=== PATIENT | male | born 1995 | race Hispanic/Latino ===

== ENCOUNTER 2024-02-03 20:41 | Emergency (ER) | payer OTHER, SELFPAY ==
[2024-02-03] MEDS ORDERED: KETOROLAC 30 MG/ML INJ ONE (21:49)
[2024-02-03] MEDS ORDERED: NA CHLORIDE 0.9% 1,000 ML ONE (21:50)
[2024-02-03 21:57] LABS: Absolute Eosinophils 0.1 K/uL (0-0.5); Absolute Lymphocytes (CBC) 1.6 K/uL (0.7-4.9); Absolute Monocytes 0.6 K/uL (0.1-1.3); Absolute Neutrophil 12.3 K/uL (1.8-8.0); Basophils % 0.3 % (0-1.3); Eosinophils % 0.4 % (0-4.4); Hematocrit 50.8 % (39.6-49.0); Hemoglobin 17.1 g/dL (13.6-17.9); Lymphocytes % 11.1 % (15.3-44.8); MCH 31.5 pg (27.0-35.0); MCHC 33.6 g/dL (32.0-36.0); MCV 93.9 fL (80-100); MPV 11.9 fL (7.6-11.3); Monocytes % 4.4 % (3.3-12.3); Neutrophils % 83.8 % (41.7-73.7); Nucleated Red Blood Cells % 0.2 % (0-0); Platelets 177 thou/uL (152-406); RBC Red Blood Cell Count 5.42 M/uL (4.33-5.43); Red Cell Distribution Width 12.7 % (12.1-15.2)
[2024-02-03 22:11] LABS: Anion Gap 8.1 mEq/L (5.0-15.0); Potassium 4.1 mEq/L (3.5-5.1)
[2024-02-03 22:12] LABS: Albumin 4.3 g/dL (3.4-5.0); Albumin/Globulin Ratio 1.1 (1.1-1.8); Bilirubin Total 0.8 mg/dL (0.2-1.0); Protein, Total 8.3 g/dL (6.4-8.2)
--- NOTE | 2024-02-04 00:29 | RAD REPORT ---
CLINICAL HISTORY: RLQ and R Flank;Abd pain. COMPARISON: None. TECHNIQUE: CT of the abdomen and pelvis was performed following intravenous administration of iodinat ed contrast. Oral contrast was not administered. Axial, coronal, and sagittal soft tissue window reconstructions were created and sent to PACS. This exam was performed according to our departmental dose-optimization program, which includes autom ated exposure control, adjustment of the mA and/or kV according to patient size and/or use of iterative reconstruction technique. FINDINGS: Thoracic: No significant abnormality. Hepatobiliary: Suspected diffuse hepatic steatosis. No concerning hepatic lesion identified. The port al veins are patent. The gallbladder is unremarkable. No biliary ductal dilatation. Pancreas: Unremarkable. Spleen: Unremarkable. Gastrointestinal: No evidence of bowel obstruction or perienteric inflammation. The appendix is billy l. A small stool burden. Adrenals: No abnormality identified in either adrenal gland. Renal: Trace right perinephric fat stranding. Minimally delayed enhancement of the right kidney relat mei to the left. No concerning parenchymal lesion in either kidney. No hydronephrosis or urolithiasis. Bladder/Reproductive: Unremarkable appearance of the urinary bladder by CT technique. Vascular/Lymphatics: No lymphadenopathy identified by CT size criteria. Abdominal aorta is normal in caliber. Musculoskeletal: No concerning osseous lesion identified. Fluid / peritoneum: No significant free fluid. No free intraperitoneal air identified. IMPRESSION 1. Trace right perinephric fat stranding. No hydronephrosis or urolithiasis. Findings are concernin g for potential ascending urinary tract infection (pyelonephritis). 2. Normal appendix. Electronically signed by: Lissett Howell MD 02/04/2024 12:06 AM [facility] Due to temporary technical issues with the PACS/[employer] reporting system, reports are being xi d by the in-house radiologist without review as a courtesy to ensure prompt reporting the interpreting radiologist is fully responsible for the content of the report. Transcribed Date/Time: 02/04/2024 12:29 AM
[2024-02-04 00:40] LABS: Sqamous Epithelial <5 /HPF (None Seen); Urine Bacteria None Seen /HPF (<20); Urine Bilirubin NEGATIVE (Negative); Urine Blood 3+ (Negative); Urine Clarity Clear (Clear); Urine Color Colorless (Yellow); Urine Culture Reflex Order NOT NEEDED; Urine Glucose NEGATIVE (Negative); Urine Ketones NEGATIVE (Negative); Urine Microscopic Reflex YN ORDER UMIC; Urine Nitrite NEGATIVE (Negative); Urine Protein NEGATIVE (Negative); Urine RBC >50 /HPF (None Seen); Urine Urobilinogen Normal (Normal); Urine WBC <5 /HPF (<5); Urine pH 6.5 (5.0-7.0)
[2024-02-04 00:43] LABS: Specific Gravity > 1.030 (1.005-1.030)
--- NOTE | 2024-02-04 01:04 | EDPHYS ---
Physician Documentation [facility] Name: Rafael Zacarias Age: 28 yrs Sex: Male : 1995 Arrival Date: 02/03/2024 Time: 20:41 Bed 7 Private MD: ED Physician Meera Finn HPI: 02/02 21:40 This 28 yrs old Male presents to ER via Unassigned with complaints of sp3 umbilical pain radiating to right side, urinary urgency. 21:40 28-year-old male with no past medical history presents with right-sided abdominal pain sp3 coupled with urinary hesitancy for the last 1 to 2 days. Patient denies left-sided abdominal pain, flank pain, vomiting, diarrhea, fever, prior surgical history, or any other signs or symptoms on ROS at this time.. Historical: - Allergies: 21:42 "CHEMICAL BURN MEDICATION"; vc1 - Home Meds: 21:42 None [Active]; vc1 - PMHx: 21:42 None; vc1 - PSHx: 21:42 None; vc1 - Immunization history:: Client reports receiving the 1st dose of the Covid vaccine. - Infectious Disease History:: Denies. - Social history:: Smoking status: Patient denies any tobacco usage or history of. ROS: 21:40 Constitutional: Negative for fever, chills, and weight loss, Eyes: Negative for injury, sp3 pain, redness, and discharge, ENT: Negative for injury, pain, and discharge, Neck: Negative for injury, pain, and swelling, Cardiovascular: Negative for chest pain, palpitations, and edema, Respiratory: Negative for shortness of breath, cough, wheezing, and pleuritic chest pain, Back: Negative for injury and pain, MS/Extremity: Negative for injury and deformity, Skin: Negative for injury, rash, and discoloration, Neuro: Negative for headache, weakness, numbness, tingling, and seizure, Psych: Negative for depression, anxiety, suicide ideation, homicidal ideation, and hallucinations, Allergy/Immunology: Negative for hives, rash, and allergies, Endocrine: Negative for neck swelling, polydipsia, polyuria, polyphagia, and marked weight changes, Hematologic/Lymphatic: Negative for swollen nodes, abnormal bleeding, and unusual bruising, 21:40 All other systems are negative, Exam: 21:40 Constitutional: This is a well developed, well nourished patient who is awake, alert, sp3 and in no acute distress. Head/Face: Normocephalic, atraumatic. Eyes: Pupils equal round and reactive to light, extra-ocular motions intact. Lids and lashes normal. Conjunctiva and sclera are non-icteric and not injected. Cornea within normal limits. Periorbital areas with no swelling, redness, or edema. Neck: Trachea midline, no thyromegaly or masses palpated, and no cervical lymphadenopathy. Supple, full range of motion without nuchal rigidity, or vertebral point tenderness. No Meningismus. Chest/axilla: Normal chest wall appearance and motion. Nontender with no deformity. No lesions are appreciated. Cardiovascular: Regular rate and rhythm with a normal S1 and S2. No gallops, murmurs, or rubs. Normal PMI, no JVD. No pulse deficits. Respiratory: Lungs have equal breath sounds bilaterally, clear to auscultation and percussion. No rales, rhonchi or wheezes noted. No increased work of breathing, no retractions or nasal flaring. Back: No spinal tenderness. No costovertebral tenderness. Full range of motion. Skin: Warm, dry with normal turgor. Normal color with no rashes, no lesions, and no evidence of cellulitis. MS/ Extremity: Pulses equal, no cyanosis. Neurovascular intact. Full, normal range of motion. Neuro: Awake and alert, GCS 15, oriented to person, place, time, and situation. Cranial nerves II-XII grossly intact. Motor strength 5/5 in all extremities. Sensory grossly intact. Cerebellar exam normal. Normal gait. Psych: Awake, alert, with orientation to person, place and time. Behavior, mood, and affect are within normal limits. 21:40 Abdomen/GI: Right lower quadrant abdominal pain to palpation radiating superiorly. No peritoneal signs, rebound or guarding noted., Vital Signs: 21:39 BP 158 / 98; Pulse 62; Resp 14; Temp 98.2; Pulse Ox 99% ; Weight 111.13 kg; Height 5 vc1 ft. 8 in. ; Pain 8/10; 02/03 00:34 BP 125 / 81; Pulse 71; Resp 18; Pulse Ox 97% ; cp4 01:14 BP 132 / 80; Pulse 63; Resp 18; Pulse Ox 99% ; cp4 02/02 21:39 Body Mass Index 37.25 (111.13 kg, 172.72 cm) vc1 02/02 21:39 Pain Scale: Adult vc1 MDM: 02/02 21:32 Medical Screening Exam initiated sp3 21:41 Data reviewed: vital signs, nurses notes, lab test result(s), radiologic studies. ED sp3 course: 28-year-old male with abdominal pain. Differential diagnosis includes appendicitis, UTI/pyelonephritis spectrum, ureterolithiasis/kidney stone spectrum, other bowel pathology, functional abdominal pain, musculoskeletal, among others. Workup will include CT scan of the abdomen pelvis with IV contrast, general labs and UA with disposition pending workup and patient course.. 02/03 01:03 ED course: Patient with right perinephric fat stranding and CBC demonstrates mild left sp3 shift. No other intra-abdominal pathology noted. Urine analysis demonstrates RBCs without evidence of infection. Given other findings however we will prophylactically treat with antibiotics and patient to follow-up with his PCP. Appendicitis is ruled out as well. No kidney stone present.. 02/02 21:39 Order name: CBC with Diff; Complete Time: 00:12 sp3 02/02 21:39 Order name: CMP; Complete Time: 00:12 sp3 02/02 21:39 Order name: Lipase; Complete Time: 00:12 sp3 02/02 21:39 Order name: Urinalysis w/ reflexes; Complete Time: 00:55 sp3 02/02 21:39 Order name: CT Abd/Pelvis - IV Contrast Only; Complete Time: 00:34 sp3 02/02 21:39 Order name: IV Saline Lock; Complete Time: 21:54 sp3 02/02 21:39 Order name: Labs collected and sent; Complete Time: 21:54 sp3 Administered Medications: 02/02 21:54 Drug: TORadol - Ketorolac IVP 15 mg IVP once Route: IVP; Site: right antecubital; cp4 22:32 Follow up: Response: No adverse reaction cp4 21:54 Drug: NS 0.9% IV 1000 ml IV at 1 bolus Per protocol; to be given as a bolus over 60 cp4 minutes Route: IV; Rate: 1 bolus; Site: right antecubital; 11/23 01:13 Follow up: IV Status: Infusion continued cp4 01:12 Drug: LevOfloxacin PO 500 mg PO once Route: PO; cp4 01:12 Follow up: Response: No adverse reaction cp4 Disposition Summary: 02/04/24 01:03 Discharge Ordered Notes: Location: Home sp3 Condition: Stable sp3 Diagnosis - Abdominal pain, unspecified sp3 Followup: sp3 - With: Private Physician - When: Upon discharge from the Emergency Department - Reason: Continuance of care Discharge Instructions: - Discharge Summary Sheet sp3 - Abdominal Pain, Adult sp3 Forms: - Medication Reconciliation Form sp3 - Antibiotic Education sp3 - Prescription Opioid Use sp3 - Patient Portal Instructions sp3 - Leadership Thank You Letter sp3 Prescriptions: - levofloxacin 500 mg Oral tablet - take 1 tablet ORAL route once daily for 7 days; 7 tablet; Refills: 0, Product sp3 Selection Permitted Signatures: Dispatcher [employer] EDMS Meera Finn MD MD sp3 Flori Clark RN RN vc1 Amalia Parks cp4 Corrections: (The following items were deleted from the chart) 02/02 21:39 21:39 CBC+H.LAB.BRZ ordered. EDMS EDMS 21:39 21:39 COMPREHENSIVE METABOLIC PANEL+C.LAB.BRZ ordered. EDMS EDMS 21:39 21:39 LIPASE+C.LAB.BRZ ordered. EDMS EDMS 21:39 21:39 Urinalysis+U.LAB.BRZ ordered. EDMS EDMS
--- NOTE | 2024-02-04 01:04 | ER ---
Nurse's Notes [facility] Name: Rafael Zacarias Age: 28 yrs Sex: Male : 1995 Arrival Date: 02/03/2024 Time: 20:41 Bed 7 Private MD: Diagnosis: Abdominal pain, unspecified Presentation: 02/02 21:39 Chief complaint: Patient states: PAIN IN UMBILICUS AROUND 5 PM THAT MOVED TO RIGHT SIDE vc1 OF STOMACH. HAVE THE URGE TO PEE BUT UNABLE TO. Coronavirus screen: Vaccine status: Patient reports receiving the 1st dose of the Covid vaccine. Client denies travel out of the [place] in the last 14 days. At this time, the client does not indicate any symptoms associated with coronavirus-19. Ebola Screen: Patient negative for fever greater than or equal to 101.5 degrees Fahrenheit, and additional compatible Ebola Virus Disease symptoms Patient denies exposure to infectious person. Patient denies travel to an Ebola-affected area in the 21 days before illness onset. No symptoms or risks identified at this time. Initial Sepsis Screen: Does the patient meet any 2 criteria? No. Patient's initial sepsis screen is negative. Does the patient have a suspected source of infection? No. Patient's initial sepsis screen is negative. Risk Assessment: Do you want to hurt yourself or someone else? Patient reports no desire to harm self or others. Onset of symptoms was February 03, 2024. Care prior to arrival: None. Activity prior to arrival: None. 21:39 Method Of Arrival: Ambulatory vc1 21:39 Acuity: TEJAS 3 vc1 Triage Assessment: 21:44 General: Appears in no apparent distress. uncomfortable, well groomed, well developed, vc1 well nourished, Behavior is calm, cooperative, appropriate for age. Pain: Complains of pain in umbilical area Pain radiates to right upper quadrant Pain currently is 8 out of 10 on a pain scale. at worst was 10 out of 10 on a pain scale. EENT: No deficits noted. No signs and/or symptoms were reported regarding the EENT system. Neuro: Level of Consciousness is awake, alert, obeys commands, Oriented to person, place, time, situation, Appropriate for age. Cardiovascular: Capillary refill < 3 seconds Patient's skin is warm and dry. Respiratory: Airway is patent Respiratory effort is even, unlabored, Respiratory pattern is regular, symmetrical. GI: Abdomen is round non-distended. : Reports inability to void, urgency, since 5 PM. Derm: Skin is intact, is healthy with good turgor, Skin is dry, Skin is normal, Skin temperature is warm. Musculoskeletal: Circulation, motion, and sensation intact. Range of motion: intact in all extremities. Historical: - Allergies: 21:42 "CHEMICAL BURN MEDICATION"; vc1 - Home Meds: 21:42 None [Active]; vc1 - PMHx: 21:42 None; vc1 - PSHx: 21:42 None; vc1 - Immunization history:: Client reports receiving the 1st dose of the Covid vaccine. - Infectious Disease History:: Denies. - Social history:: Smoking status: Patient denies any tobacco usage or history of. Screenin:43 [facility] ED Fall Risk Assessment (Adult) History of falling in the last 3 months, vc1 including since admission No falls in past 3 months (0 pts) Confusion or Disorientation No (0 pts) Intoxicated or Sedated No (0 pts) Impaired Gait No (0 pts) Mobility Assist Device Used No (0 pt) Altered Elimination Yes (1 pt) Score/Fall Risk Level 0 - 2 = Low Risk Oriented to surroundings, Maintained a safe environment, Educated pt \\T\\ family on fall prevention, incl call for assistance when getting out of bed. Abuse screen: Denies threats or abuse. Nutritional screening: No deficits noted. Tuberculosis screening: No symptoms or risk factors identified. Assessment: 21:54 General: Appears in no apparent distress. uncomfortable, Behavior is calm, cooperative, cp4 appropriate for age. Pain: Complains of pain in right upper quadrant and abdomen Pain does not radiate. Pain currently is 8 out of 10 on a pain scale. Neuro: Level of Consciousness is awake, alert, obeys commands, Oriented to person, place, time, situation. Cardiovascular: Patient's skin is warm and dry. Respiratory: Airway is patent Respiratory effort is even, unlabored. GI: Abdomen is round non-distended, Bowel sounds present X 4 quads. : Reports urgency. EENT: No signs and/or symptoms were reported regarding the EENT system. Derm: No signs and/or symptoms reported regarding the dermatologic system. Musculoskeletal: No signs and/or symptoms reported regarding the musculoskeletal system. 23:00 Reassessment: Patient appears in no apparent distress at this time. Patient and/or cp4 family updated on plan of care and expected duration. Pain level reassessed. Patient is alert, oriented x 3, equal unlabored respirations, skin warm/dry/pink. 02/03 00:00 Reassessment: Patient appears in no apparent distress at this time. Patient and/or cp4 family updated on plan of care and expected duration. Pain level reassessed. Patient is alert, oriented x 3, equal unlabored respirations, skin warm/dry/pink. Vital Signs: 02/02 21:39 BP 158 / 98; Pulse 62; Resp 14; Temp 98.2; Pulse Ox 99% ; Weight 111.13 kg; Height 5 vc1 ft. 8 in. ; Pain 8/10; 02/03 00:34 BP 125 / 81; Pulse 71; Resp 18; Pulse Ox 97% ; cp4 01:14 BP 132 / 80; Pulse 63; Resp 18; Pulse Ox 99% ; cp4 02/02 21:39 Body Mass Index 37.25 (111.13 kg, 172.72 cm) vc1 02/02 21:39 Pain Scale: Adult vc1 ED Course: 02/02 20:43 Patient arrived in ED. am2 20:52 Meera Finn MD is Attending Physician. sp3 21:36 Amalia Parks is Primary Nurse. cp4 21:42 Triage completed. vc1 21:44 Patient has correct armband on for positive identification. Bed in low position. Call vc1 light in reach. Pulse ox on. NIBP on. 21:47 Arm band placed on right wrist. vc1 21:54 No provider procedures requiring assistance completed. Initial lab(s) drawn, by me, cp4 sent to lab. Inserted saline lock: 20 gauge in right antecubital area, using aseptic technique. Blood collected. Flushed with 10 mL NS. 23:48 CT Abd/Pelvis - IV Contrast Only In Process Unspecified. EDMS 02/03 01:15 Provided Education on: abdominal pain. cp4 01:15 intact, bleeding controlled, No redness/swelling at site. Pressure dressing applied. cp4 Administered Medications: 02/02 21:54 Drug: TORadol - Ketorolac IVP 15 mg IVP once Route: IVP; Site: right antecubital; cp4 22:32 Follow up: Response: No adverse reaction cp4 21:54 Drug: NS 0.9% IV 1000 ml IV at 1 bolus Per protocol; to be given as a bolus over 60 cp4 minutes Route: IV; Rate: 1 bolus; Site: right antecubital; 02/03 01:13 Follow up: IV Status: Infusion continued cp4 01:12 Drug: LevOfloxacin PO 500 mg PO once Route: PO; cp4 01:12 Follow up: Response: No adverse reaction cp4 Medication: 02/02 21:48 VIS not applicable for this client. vc1 Outcome: 02/03 01:03 Discharge ordered by . sp3 01:15 Discharged to home ambulatory, cp4 01:15 Condition: stable 01:15 Discharge instructions given to patient, family, Instructed on discharge instructions, follow up and referral plans. medication usage, Demonstrated understanding of instructions, follow-up care, medications, Prescriptions given X 1, 01:19 Patient left the ED. cp4 Signatures: Dispatcher [employer] EDMS Abbey Howard am2 Meera Finn MD MD sp3 Flori Clark RN RN vc1 Amalia Parks cp4
[2024-02-04] MEDS ORDERED: levoFLOXacin 250 MG TAB ONE (01:08)
[2024-02-04 05:54] VITALS: TEMP 98.2
[2024-02-04 06:09] VITALS: BP 132/80; O2SAT 99
== END 2024-02-04 01:19 | disposition home or self-care (01) ==
LOC: ER 20:41
DX: R10.31 Right lower quadrant pain (principal)
CPT/HCPCS: 36415; 74177; 80053; 81001; 83690; 85025; J7030; Q9967